=== PATIENT | female | born 1960 | race Caucasian/White ===

== ENCOUNTER → 2018-07-11 | Outpatient (CLI) | payer OTHER | LOC: FIMAGING 08:51 | PROVIDERS: ATTEND Surgery | PROC: CG111ZZ Planar Nuclear Medicine Imaging of Parathyroid Glands using Technetium 99m (Tc-99m) (ICD-10-PCS; principal; 2018-07-11) | DX: D35.1 Benign neoplasm of parathyroid gland (principal); E21.3 Hyperparathyroidism, unspecified | CPT/HCPCS: 78070; A9500 ==

== ENCOUNTER → 2018-07-18 | Outpatient (CLI) | payer OTHER | LOC: FIMAGING 15:39 | PROVIDERS: ATTEND Physician Assistant | DX: D35.1 Benign neoplasm of parathyroid gland (principal); E21.3 Hyperparathyroidism, unspecified ==

== ENCOUNTER 2018-09-08 05:51 | Observation (INO) | payer OTHER ==
[2018-09-08] MEDS ORDERED: VANCOMYCIN PHARMACY TO DOSE MISC ONE (06:06)
[2018-09-08] MEDS ORDERED: LR 1,000 ML IV ONE (06:07)
[2018-09-08] MEDS ORDERED: LIDOCAINE 1% 2 ML INJ ID PRN (06:07)
[2018-09-08] MEDS ORDERED: VANCOMYCIN 1.5 GM in NS 250 ML IV ONE (06:30)
[2018-09-08] MEDS ORDERED: BUPIVACAINE 0.25% 10 ML SDV ONE (06:37)
[2018-09-08] MEDS ORDERED: traZODone 50 MG TAB PO PRN (06:39)
--- NOTE | 2018-09-08 06:54 | PDHPUP ---
History & Physical Update H&P update statement: This history and physical update is based on an assessment of the patient which was completed after admission or registration (within 24 hours), but prior to the surgery/procedure. H&P update: H&P reviewed & patient examined, no change in patient's condition since H&P completed
[2018-09-08] MEDS: ESCITALOPRAM OXALATE 10 MG TAB PO SCH (06:57)
[2018-09-08] MEDS: LEVOTHYROXINE 50 MCG TAB PO SCH (06:57)
[2018-09-08] MEDS ORDERED: PROPOFOL 200 MG/20 ML VIAL ONE (07:03)
[2018-09-08] MEDS ORDERED: fentaNYL 100 MCG/2 ML INJ ONE ×3 (07:03→11:04)
--- NOTE | 2018-09-08 07:04 | PDANEPAE ---
ANE Past Medical History - Cardiovascular History Hx Hypertension: No Hx Arrhythmias: No Hx Chest Pain: No Hx Coronary Artery / Peripheral Vascular Disease: No Hx CHF / Valvular Disease: No Hx Palpitations: No - Pulmonary History Hx COPD: No Hx Asthma/Reactive Airway Disease: No Hx Recent Upper Respiratory Infection: No Hx Oxygen in Use at Home: No Hx Sleep Apnea: No Sleep Apnea Screening Result - Last Documented: Negative - Neurologic History Hx Cerebrovascular Accident: No Hx Seizures: No Hx Dementia: No - Endocrine History Hx Diabetes: No - Renal History Hx Renal Disorders: No - Liver History Hx Hepatic Disorders: No - Neurological & Psychiatric Hx Hx Neurological and Psychiatric Disorders: Yes Neurological / Psychiatric History Comment: depression and anxiety - Cancer History Hx Cancer: No - Congenital Disorder History Hx Congenital Disorders: No - GI History Hx Gastrointestinal Disorders: No - Other Health History Other Health History: none - Chronic Pain History Chronic Pain: No - Surgical History Prior Surgeries: bilat knee replacement ANE Review of Systems Review of Systems: - Exercise capacity Exercise capacity: >=4 METS METS (RN): 5 METS ANE Patient History - Allergies Allergies/Adverse Reactions: adhesive tape Allergy (Verified 09/08/18 06:20) Rash Penicillins Allergy (Verified 09/08/18 06:20) Other-Enter Comments terbinafine [From Lamisil] Allergy (Verified 09/08/18 06:20) Rash - Home Medications Home medications: home medication list seen and reviewed Home Medications: Escitalopram Oxalate [Lexapro] 20 mg PO DAILY 08/23/18 [Last Taken Unknown] Multivitamins [Multivitamin (*)] 1 each PO DAILY 08/23/18 [Last Taken Unknown] Ingomar-3 Fatty Acids [Fish Oil 1000 mg (*)] 1,000 mg PO DAILY 08/23/18 [Last Taken Unknown] RX: Levothyroxine [Synthroid 50 mcg (*)] 50 mcg PO DAILY 08/23/18 [Last Taken Unknown] traZODone [traZODONE 50MG (*)] 50 mg PO HS PRN 08/23/18 [Last Taken Unknown] - NPO status NPO Status: no food or drink >8 hours NPO Since - Liquids (Date): 09/07/18 NPO Since - Liquids (Time): 20:00 NPO Since - Solids (Date): 09/07/18 NPO Since - Solids (Time): 20:00 - Anes Hx Anes Hx: post operative nausea and vomiting - Smoking Hx Smoking Status: Never smoked - Family Anes Hx Family Anes Hx: none Family Hx Anesthesia Complications: none ANE Labs/Vital Signs - Vital Signs Blood Pressure: 116/86 Heart Rate: 67 Respiratory Rate: 16 Height: 177.8 cm Weight: 104.326 kg ANE Physical Exam - Airway Neck exam: FROM Mallampati Score: Class 1 Mouth exam: normal dental/mouth exam - Pulmonary Pulmonary: clear to auscultation - Cardiovascular Cardiovascular: regular rate and rhythym - ASA Status ASA Status: II ANE Anesthesia Plan Anesthesia Plan: general endotracheal anesthesia
[2018-09-08] MEDS ORDERED: MIDAZOLAM 2 MG/2 ML VIAL IVP ONE (07:05)
[2018-09-08] MEDS ORDERED: SCOPOLAMINE HYDROBROMIDE 1 MG/3 DAYS PATCH TD ONE (07:05)
[2018-09-08] MEDS ORDERED: METOCLOPRAMIDE 10 MG/2 ML VIAL ONE (07:07)
[2018-09-08] MEDS ORDERED: DEXAMETHASONE 4 MG/ML VIAL ONE ×2 (07:08→07:20)
[2018-09-08] MEDS ORDERED: ROCURONIUM 50 MG/5 ML VIAL ONE (07:26)
[2018-09-08] MEDS ORDERED: KETOROLAC 30 MG/1 ML SDV ONE (09:00)
[2018-09-08] MEDS ORDERED: ONDANSETRON 4 MG/2 ML VIAL ONE (09:00)
[2018-09-08] MEDS ORDERED: DEXAMETHASONE 4 MG/ML VIAL IVP PRN (09:11)
[2018-09-08] MEDS ORDERED: MEPERIDINE 25 MG/0.5 ML AMP IVP PRN (09:11)
[2018-09-08] MEDS ORDERED: NALOXONE HCL 0.4 MG/ML INJ IVP PRN (09:11)
[2018-09-08] MEDS ORDERED: fentaNYL 100 MCG/2 ML INJ IVP PRN (09:11)
[2018-09-08] MEDS ORDERED: HYDROmorphONE/DILAUDID 2 MG/ML INJ IVP PRN (09:11)
[2018-09-08] MEDS ORDERED: DIAZEPAM 5 MG/ML 1 ML SYR IVP PRN (09:11)
[2018-09-08] MEDS ORDERED: LABETALOL HCL 5 MG/ML 20 ML MDV IVP PRN (09:11)
[2018-09-08] MEDS ORDERED: PROMETHAZINE HCL 25 MG/ML INJ IVP PRN (09:11)
[2018-09-08] MEDS ORDERED: ONDANSETRON 4 MG/2 ML VIAL IVP PRN ×2 (09:11→09:23)
[2018-09-08] MEDS ORDERED: LR 500 ML IV PRN (09:11)
[2018-09-08] MEDS ORDERED: METOCLOPRAMIDE 10 MG/2 ML VIAL IVP PRN (09:11)
[2018-09-08] MEDS ORDERED: ALBUTEROL 3 ML DEYVIAL IH PRN (09:11)
[2018-09-08] MEDS ORDERED: PHENYLEPHRINE HCL 100 MCG/ML SYR ONE (09:16)
[2018-09-08] MEDS ORDERED: ePHEDrine SULFATE 25 MG/5 ML SYR ONE (09:16)
[2018-09-08] MEDS ORDERED: NEOSTIGMINE METHYLSULFATE 5 MG/5 ML SYR ONE (09:19)
[2018-09-08] MEDS ORDERED: GLYCOPYRROLATE 0.2 MG/1 ML VIAL ONE (09:19)
[2018-09-08] MEDS ORDERED: HYDROCODONE/APAP 5/325 TAB PO PRN (09:23)
--- NOTE | 2018-09-08 09:23 | POSTOPPROG ---
Post Op Note Date of Operation: 09/08/18 Surgeon: Herminio Ramires (, FACS) Felt Cementer: Mercedes Hodgson PA-C Anesthesiologist: Mandy Horta MD Anesthesia: GET(General Endotracheal) Pre-op Diagnosis: hyperparathyroidism, thyroid nodule Post-op Diagnosis: same Procedure: parathyroidectomy/excision thyroid nodule Findings: 1000 mg hypercellular parathyroid/small thyroid nodule deferred path Inf/Abcess present in the surg proc area at time of surgery?: No EBL: Minimal (10 ml) Complications: none Specimen(s): Left lower pole parathyroid 1000 mg small thyroid nodule, possible follicular adenoma
[2018-09-08] MEDS ORDERED: CALCIUM CARBONATE 500 MG CHEWABLE TAB PO PRN (09:58)
--- NOTE | 2018-09-08 10:56 | POSTANESTH ---
Post Anesthetic Evaluation Cardiovascular Status: Normal, Stable Respiratory Status: Normal, Stable Level of Consciousness/Mental Status: Other, See Comment (Awake, tearful, scared ) Pain Control: Adequate, Prn Tx Ordered Nausea/Vomiting Control: Adequate, Prn Tx Ordered Complications Possibly Related to Anesthesia: None Noted
--- NOTE | 2018-09-08 10:57 | GOP ---
DATE OF OPERATION: 09/08/2018 SURGEON: Herminio Ramires MD, FACS ENAMEL SHADER: Mercedes Hodgson PA-C. ANESTHESIA: General endotracheal. ANESTHESIOLOGIST: Mandy Horta MD. PREOPERATIVE DIAGNOSIS: 1. Hyperparathyroidism. 2. Left thyroid nodule. POSTOPERATIVE DIAGNOSIS: 1. Hyperparathyroidism. 2. Left thyroid nodule. PROCEDURE PERFORMED: 1. Parathyroidectomy. 2. Excision of left thyroid nodule. FINDINGS: 1000 mg hypercellular parathyroid, left inferior position; small follicular nodule, left mid thyroid, deferred to permanent section. ESTIMATED BLOOD LOSS: 10 cc. DESCRIPTION OF PROCEDURE: After informed consent was obtained, the patient was brought to the operating room and placed under general anesthesia. The neck was prepped and draped in the usual fashion. Before proceeding, a time-out and identification of the patient were done. Safe and timely completion of the operation required the help of a qualified assistant merchandiser, and Mercedes Hodgson PA-C was requested to attend. The planned incision site was infiltrated with 0.25% Marcaine, incised transversely, and dissection carried out through the subcutaneous tissues and platysma muscle with cautery. Flaps were elevated cephalad to the cricothyroid membrane and inferiorly to the suprasternal notch. The strap muscles were mobilized in the midline. Hemostasis was secured with cautery and hemoclips. The strap muscles to the left of midline were gently elevated off the thyroid gland which was rotated medially, anticipating identification of the parathyroid adenoma in the left inferior pole based on preoperative imaging. Preoperative imaging also showed what was believed to be a thyroid nodule, though the thyroid itself felt unremarkable and did not contain a nodule that I could detect. The middle thyroid vein was dispatched with a Harmonic scalpel, allowing further rotation of the gland medially. Above the level of the recurrent laryngeal nerve and ligament of Benavidez, a nodule was identified that proved to be the hypercellular parathyroid gland. This measured approximately 1 cm in diameter and was gently dissected away from the surrounding fibrovascular structures in the neck, hemostasis being secured with the Harmonic scalpel and hemoclips. This was detached from its blood supply and submitted for frozen section. 10 and 20 minutes after removal of the hypercellular parathyroid, PTH levels were submitted for rapid PTH assay intraoperatively. No thyroid nodule was readily identified until the gland was rotated medially, and a small nodule, which initially I thought was a lymph node , was identified just superficial to the recurrent laryngeal nerve in the region of the ligament of Benavidez. This was carefully dissected away from its blood supply close to the capsule of the thyroid and was excised completely. It measured only approximately 3-4 mm in diameter, but was firm compared to the remainder of the thyroid gland and had a whitish appearance. This was submitted for frozen section. The 1st PTH level came back at 39.3 with a baseline of 150, and so no further exploration for additional parathyroid glands was indicated. Subsequent frozen section confirmed a hypercellular parathyroid weighing 1000 mg, and the small nodule was suspected to be a follicular lesion of the thyroid rather than a lymph node. Hemostasis appeared secure within the operative field. The recurrent laryngeal nerve was intact. A small piece of Surgicel was placed between the thyroid gland and the strap muscles, and the midline strap muscles approximated with interrupted 3-0 Vicryl suture. Platysma was approximated with 3-0 Vicryl suture. Skin was closed with 4-0 Monocryl suture in a subcuticular fashion. Topical Dermabond was applied. The patient was returned extubated to the recovery room in satisfactory condition. Needle, sponge, and instrument count were correct. COMPLICATIONS: None. Copy requested to: Concetta Wolfe /[id number]/MODL MTDD
--- NOTE | 2018-09-08 16:27 | ASMTCMCOM ---
CM Note CM Note Notes: Pt in for a scheduled thyroid surgery. Anticipate she will dc home with support of when medicallly stable. CM available for changes. DC Plan: Independent Date Signed: 09/08/2018 04:26 PM Electronically Signed By:Neelima Bonds RN
[2018-09-08] MEDS: KETOROLAC 15 MG/1 ML SDV IVP SCH (18:44)
[2018-09-09] MEDS: KETOROLAC 15 MG/1 ML SDV IVP SCH ×3 (02:50→08:56)
[2018-09-09 08:40] VITALS: BP 105/57
[2018-09-09] MEDS ORDERED: ENOXAPARIN 40 MG/0.4 ML SYR SC SCH (09:00)
[2018-09-09] MEDS ORDERED: CALCITRIOL 0.25 MCG CAP PO SCH (09:00)
[2018-09-09] MEDS: ESCITALOPRAM OXALATE 10 MG TAB PO SCH (09:05)
[2018-09-09] MEDS: LEVOTHYROXINE 50 MCG TAB PO SCH (09:06)
[2018-09-09] MEDS ORDERED: CALCIUM CARBONATE 500 MG CHEWABLE TAB PO SCH (10:00)
--- NOTE | 2018-09-09 10:04 | PDDCSUM ---
Discharge Summary Discharge Summary: Discharge summary dictated #[id number] Cammie Ramires MD, FACS
--- NOTE | 2018-09-09 10:22 | GDS ---
DISCHARGE DIAGNOSES: 1. Hyperparathyroidism. 2. Left thyroid nodule. 3. History of depression. 4. Postoperative hallucinations. PROCEDURE PERFORMED: 1. Parathyroidectomy. 2. Excision of left thyroid nodule. HOSPITAL COURSE: For details of admission history and physical, please see dictated summary. Briefl y, the patient is a 58-year-old female with asymptomatic hyperparathyroidism. Preoperative imaging s howed a suspected adenoma in the left lower pole position, in addition to a thyroid nodule. At the t soto of surgery, patient had a baseline PTH of 150. Her parathyroid adenoma was found in the left mid thyroid position and weighed 1000 mg. PTH levels dropped within 10 minutes from 150 to 39.8; at 20 minutes, 26.3. The thyroid nodule was small, and frozen section showed a probable follicular lesion deferred to permanent. Following surgery, patient was hemodynamically stable. She was admitted for observation. Serial calcium levels were obtained, and she was started on calcitriol 0.25 mcg p.o. da sanna. In the evening after her surgery, she took 2 Warner and developed hallucinations, which unbeknow nst to me had occurred after her last surgery (total knee replacement). Narcotics were discontinued, and she was treated with ketorolac for pain. Her hallucinations resolved, and she had no further si gnificant pain requiring additional narcotics. On the morning after surgery, her calcium level had f aaron from 10 to 8.8. She was started on oral calcium carbonate and tolerated a regular diet. Her i ncision was healing well, without significant swelling or signs of infection. CONDITION ON DISCHARGE: Satisfactory. DISCHARGE MEDICATIONS: Include calcitriol 0.25 mcg p.o. daily, calcium carbonate 500 mg p.o. t.i.d., ibuprofen 600 mg p.o. q.6 hours p.r.n. pain, escitalopram 20 mg p.o. daily, and trazodone 50 mg p.o. q.h.s. The patient will follow up in my office later this week. Was instructed in diet, activity and wound care. At the time of discharge, was afebrile, ambulatory, tolerating a soft diet, and her incision w as uncomplicated. Copy requested to: Addis Wolfe /[id number]/MODL
== END 2018-09-09 11:12 | disposition home or self-care (01) ==
LOC: F3E 05:51
PROVIDERS: ADMIT Surgery; ATTEND Surgery
DX: E21.3 Hyperparathyroidism, unspecified (principal); E04.1 Nontoxic single thyroid nodule; R44.3 Hallucinations, unspecified; T40.2X5A Adverse effect of other opioids, initial encounter; Z23 Encounter for immunization; Z96.653 Presence of artificial knee joint, bilateral
CPT/HCPCS: 60200; 60500; 90471; G0378; G0008; J1100; J1650; J1885; J2250; J2370; J2405; J2704; J2710; J2765; J3010; J3370